=== PATIENT | female | born 1985 | race Caucasian/White ===

== ENCOUNTER 2019-06-05 07:51 | Emergency (ER) | payer OTHER ==
[2019-06-05] MEDS ORDERED: ONDANSETRON ODT 4 MG TABLET TL STA (08:14)
[2019-06-05] MEDS ORDERED: SUMAtriptan 6 MG/0.5 ML VIAL SUBQ STA (08:14)
[2019-06-05] MEDS ORDERED: KETOROLAC 60 MG/2 ML VIAL IM STA (08:14)
--- NOTE | 2019-06-05 08:15 | ED Physician Documentation ---
PD HPI HEADACHE - Stated complaint Stated Complaint: MIGRAINE - Chief complaint Chief Complaint: Neuro - History obtained from History obtained from: Patient - History of Present Illness Timing - onset: How many hours ago (4) Timing - onset during: Rest Timing - duration: Hours (4) Timing - details: Gradual onset Pain level max: 9 Pain level now: 9 Location: Global Quality: Throbbing, Aching Associated symptoms: Nausea. No: Fever, Stiff neck, Vomiting, Weakness, Numbness, Syncope, Seizure, Eye pain, Vision changes Improved by: Rest, Dark room Worsened by: Light, Noise, Moving Contributing factors: No: Anticoagulated, Possible carbon monoxide, Hypertension, Other, Recent illness, Trauma - Additional information Additional information: has had similar headaches in the past. states normally "stays in bed" but had to work today. Review of Systems Constitutional: denies: Fever, Chills Cardiac: denies: Chest pain / pressure Respiratory: denies: Cough GI: denies: Hematemesis : denies: Dysuria, Frequency, Hesitancy, Now EGA Skin: denies: Rash Musculoskeletal: denies: Neck pain, Back pain Neurologic: denies: Focal weakness, Numbness, Syncope, Seizure, Confused, Altered mental status, Head injury, LOC PD PAST MEDICAL HISTORY - Past Medical History Past Medical History: Yes - Present Medications Home Medications: Ambulatory Orders Medication Instructions Recorded Confirmed Bupropion HCl [Wellbutrin Xl] 300 mg PO DAILY 06/05/19 06/05/19 Dextroamphetamine/Amphetamine 40 mg pe PO DAILY 06/05/19 06/05/19 [Adderall 30 mg Tablet] Trazodone HCl 200 mg PO DAILY 06/05/19 06/05/19 - Allergies Allergies/Adverse Reactions: Allergies Allergy/AdvReac Type Severity Reaction Status Date / Time No Known Drug Allergies Allergy Verified 06/05/19 08:05 - Living Situation Living Situation: reports: With family Living Arrangement: reports: At home - Social History Does the pt have substance abuse?: No - Family History Family history: reports: Non contributory PD ED PE NORMAL - Vitals Vital signs reviewed: Yes - General General: Alert and oriented X 3 - HEENT HEENT: PERRL - Neck Neck: Supple, no meningeal sign - Cardiac Cardiac: RRR, Strong equal pulses - Respiratory Respiratory: No respiratory distress, Clear bilaterally - Abdomen Abdomen: Normal bowel sounds, Soft, Non tender, Non distended - Derm Derm: Warm and dry - Extremities Extremities: No deformity - Neuro Neuro: Alert and oriented X 3, circuitry negative inspector 2-12 intact, No motor deficit, No sensory deficit, Normal speech Eye Opening: Spontaneous Motor: Obeys Commands Verbal: Oriented GCS Score: 15 - Psych Psych: Normal mood, Normal affect Results - Vitals Vitals: Vital Signs - 24 hr 06/05/19 06/05/19 06/05/19 08:03 09:09 10:10 Temperature 36.4 C L Heart Rate 86 85 77 Respiratory 18 21 18 Rate Blood Pressure 147/86 H 153/102 H 140/84 H O2 Saturation 100 97 99 Oxygen O2 Source Room air PD MEDICAL DECISION MAKING - ED course Complexity details: re-evaluated patient, considered differential, d/w patient ED course: 34-year-old female with a headache today. Feels better after Toradol, Compazine, Benadryl and Zofran. Headache resolved. Would like to go home at this time. No evidence of meningitis, subarachnoid hemorrhage. Normal neurological exam. Patient counseled regarding signs and symptoms for which I believe and urgent re-evaluation would be necessary. Patient with good understanding of and agreement to plan and is comfortable going home at this time This document was made in part using voice recognition software. While efforts are made to proofread this document, sound alike and grammatical errors may occur. Departure - Departure Disposition: 01 Home, Self Care Clinical Impression: Migraine Qualifiers: Migraine type: unspecified Status migrainosus presence: without status migrainosus Intractability: not intractable Qualified Code(s): G43.909 - Migraine, unspecified, not intractable, without status migrainosus Condition: Good Instructions: ED Headache Migraine Follow-Up: Gela Chan ARNP [Primary Care Provider] - As Needed Comments: Return if you worsen. You are not to drive today. Go home and rest. Follow-up with your doctor for further care. Forms: Activity restrictions Discharge Date/Time: 06/05/19 10:11
[2019-06-05] MEDS ORDERED: PROCHLORPERAZINE 10 MG/2 ML VIAL IM STA (09:06)
[2019-06-05] MEDS ORDERED: diphenhydrAMINE INJ 50 MG/ML VIAL IM STA (09:06)
[2019-06-05 10:11] VITALS: BP 140/84
== END 2019-06-05 10:11 | disposition home or self-care (01) ==
LOC: ED 07:51
DX: G43.909 Migraine, unspecified, not intractable, without status migrainosus (principal)
CPT/HCPCS: 96372; 99283; 99284; J1200; Q0162

== ENCOUNTER 2019-07-06 18:40 | Emergency (ER) | payer OTHER ==
[2019-07-06 19:23] LABS: BASOPHILS # (AUTO) 0.1 10^3/uL (0.0-0.1); BASOPHILS % (AUTO) 0.5 %; EOSINOPHILS # (AUTO) 0.1 10^3/uL (0.0-0.7); EOSINOPHILS % (AUTO) 0.6 %; HGB - HEMOGLOBIN 13.3 g/dL (12.0-16.0); LYMPHOCYTES # (AUTO) 2.5 10^3/uL (1.5-3.5); MEAN CORPUSCULAR HEMOGLOBIN 26.8 pg (27.0-31.0); MEAN CORPUSCULAR HGB CONC 31.7 g/dL (32.0-36.0); MEAN CORPUSCULAR VOLUME 84.7 fL (81.0-99.0); MONOCYTES # (AUTO) 0.9 10^3/uL (0.0-1.0); MONOCYTES % (AUTO) 6.1 %; NEUTROPHILS % (AUTO) 75.1 %; PLT - PLATELET COUNT 388 10^3/uL (130-450); RED BLOOD COUNT 4.96 10^6/uL (4.20-5.40); RED CELL DISTRIBUTION WIDTH 13.2 % (12.0-15.0); WHITE BLOOD COUNT 14.6 x10^3/uL (4.8-10.8)
[2019-07-06 19:31] LABS: ALBUMIN 4.3 g/dL (3.2-5.5); ALBUMIN/GLOBULIN RATIO 1.1 (1.0-2.2); BILIRUBIN,TOTAL 0.5 mg/dL (0.2-1.0); CALCIUM 9.3 mg/dL (8.5-10.3); CREATININE 0.9 mg/dL (0.4-1.0); TOTAL PROTEIN 8.1 g/dL (6.7-8.2)
--- NOTE | 2019-07-06 19:48 | XRAY Report ---
Reason: chest pain Procedure Date: 07/06/2019 Accession Number: [id number] / [id number] Procedure: XR - Chest 1 View X-Ray CPT Code: 89145 FULL RESULT: EXAM: CHEST RADIOGRAPHY EXAM DATE: 07/06/2019 07:01 PM. CLINICAL HISTORY: Chest pain. COMPARISON: None. TECHNIQUE: 1 view. FINDINGS: Lungs/Pleura: No focal opacities evident. No pleural effusion. No pneumothorax. Mediastinum: Within exam limitations, the cardiomediastinal contour is normal. Other: None. IMPRESSION: Normal single view chest. RADIA
--- NOTE | 2019-07-06 19:50 | ED Physician Documentation ---
PD HPI CHEST PAIN - Stated complaint Stated Complaint: CP - Chief complaint Chief Complaint: Cardiac - History obtained from History obtained from: Patient - History of Present Illness Timing - onset: Today Timing - onset during: Rest Timing - duration: Hours (7) Timing - details: Gradual onset Pain level max: 10 Quality: Other (Heartburn) Location: Substernal Improved by: Nothing Associated symptoms: Nausea, Cough. No: Shortness of air, Vomiting, Feeling faint / dizzy Similar symptoms before: Other (Gets frequent almost daily heartburn.) Recently seen: Not recently seen - Additional information Additional information: This is a 34-year-old woman who started experiencing some heartburn around 2:00 this afternoon and then it just became intensely sharp and she could not even swallow her own saliva she was having to spit it out. She tried taking some ranitidine that did nothing to help alleviate the pain so she called the nurse hotline around 4 PM and was instructed to come in for evaluation. Patient had worked out from about 2 PM to 3 PM despite the heartburn. She is never experienced dysphagia before but does have frequent heartburn on an almost daily basis just use the ranitidine as needed. Yesterday she says she had a lot of hiccups. She also has had some nausea but no vomiting. She denies shortness of breath although she has some pleuritic nature to the pain. No numbness or tingling. No coughing or sore throat. She denies stating her last menstrual period was June 19 and she denies dysuria. She is status post appendectomy and C-sections. Review of Systems Constitutional: denies: Fever Nose: denies: Congestion Throat: denies: Sore throat Cardiac: reports: Chest pain / pressure, Palpitations (While exercising) Respiratory: denies: Dyspnea, Cough GI: reports: Nausea. denies: Abdominal Pain, Vomiting, Diarrhea : reports: LMP (Jun 19). denies: Dysuria, Now EGA Skin: denies: Rash PD PAST MEDICAL HISTORY - Past Medical History Psych: Depression, Anxiety, ADD/ADHD - Present Medications Home Medications: Ambulatory Orders Medication Instructions Recorded Confirmed Bupropion HCl [Wellbutrin Xl] 300 mg PO DAILY 06/05/19 06/05/19 Dextroamphetamine/Amphetamine 40 mg pe PO DAILY 09/06/19 09/06/19 [Adderall 30 mg Tablet] Trazodone HCl 200 mg PO DAILY 06/05/19 06/05/19 Famotidine [Pepcid] 20 mg PO BID #60 tablet 07/06/19 raNITIdine HCl [Zantac] 150 mg PO BID #60 tablet 07/06/19 - Allergies Allergies/Adverse Reactions: Allergies Allergy/AdvReac Type Severity Reaction Status Date / Time No Known Drug Allergies Allergy Verified 07/06/19 18:49 - Social History Does the pt smoke?: No Smoking Status: Never smoker Does the pt have substance abuse?: No PD ED PE NORMAL - Vitals Vital signs reviewed: Yes - General General: Alert and oriented X 3, No acute distress, Well developed/nourished - HEENT HEENT: Atraumatic, PERRL, EOMI, Moist mucous membranes - Neck Neck: No adenopathy, Thyroid normal - Cardiac Cardiac: RRR, No murmur, Strong equal pulses - Respiratory Respiratory: No respiratory distress, Clear bilaterally - Abdomen Abdomen: Normal bowel sounds, Soft, No organomegaly, Other (Minimal discomfort in the epigastric area without guarding or rebound) - Derm Derm: Normal color, Warm and dry, No rash - Extremities Extremities: No edema - Neuro Neuro: Alert and oriented X 3, transport medic 2-12 intact, Normal speech, Other (No gross neurological deficits) - Psych Psych: Normal mood, Normal affect Results - Vitals Vitals: Vital Signs - 24 hr 07/06/19 21:51 Heart Rate 82 Respiratory 16 Rate Blood Pressure 120/87 H O2 Saturation 94 Oxygen O2 Source Room air - EKG (time done) 1852 Rate: Rate (enter#) (96) Rhythm: NSR Intervals: Normal [place], Other ([place] QRS) Ischemia: T wave inversion (III) - Labs Labs: Laboratory Tests 07/06/19 07/06/19 19:05 19:05 WBC 14.6 H RBC 4.96 Hgb 13.3 Hct 42.0 MCV 84.7 MCH 26.8 L MCHC 31.7 L RDW 13.2 Plt Count 388 MPV 9.0 Neut # (Auto) 11.0 H Lymph # (Auto) 2.5 [place] # (Auto) 0.9 Eos # (Auto) 0.1 Baso # (Auto) 0.1 Absolute Nucleated RBC 0.00 Nucleated RBC % 0.0 Sodium 137 Potassium 3.7 Chloride 100 L Carbon Dioxide 26 Anion Gap 11.0 BUN 12 Creatinine 0.9 Estimated GFR (MDRD) 71 L Glucose 92 Calcium 9.3 Total Bilirubin 0.5 AST 23 ALT 33 Alkaline Phosphatase 83 Total Protein 8.1 Albumin 4.3 Globulin 3.8 Albumin/Globulin Ratio 1.1 Lipase 28 - Rads (name of study) CXR Radiology: EMP read contemporaneously, See rad report (Neg) PD MEDICAL DECISION MAKING - ED course Complexity details: reviewed results, d/w patient ED course: White blood cell count is minimally elevated at 14. Her CMP is normal and lipase is negative. Chest x-ray is clear and EKG does not show any ischemic changes. Patient has daily heartburn and had an episode of dysphagia today where she could not even swallow her saliva but denies dysphagia on a regular basis. She will be medicated with a GI cocktail here in the emergency department and I recommended daily Zantac for the next 2 weeks. She should avoid anti-inflammatories because she takes ibuprofen on a near daily basis. Follow-up with your primary care provider if the heartburn persists despite the Zantac and avoid spicy fried or fatty foods. There is no indication that this is her gallbladder. Late entry: Zantac was changed to Pepcid due to recent safety concerns surrounding the drug. Departure - Departure Disposition: 01 Home, Self Care Clinical Impression: Reflux esophagitis Condition: Good Instructions: ED Chest Pain NonCardiac, ED GERD Follow-Up: [facility] [Provider Group] Prescriptions: Famotidine [Pepcid] 20 mg PO BID #60 tablet raNITIdine HCl [Zantac] 150 mg PO BID #60 tablet Comments: Avoid anti-inflammatory medications like ibuprofen or Aleve [id number]. Avoid spicy, fried or fatty foods. Take the Zantac twice a day for 2 weeks. If you continue to experience heartburn follow-up with your primary care provider for further management. Return to the emergency department if you have any difficulty swallowing or feel that you have food stuck that is not passing through. Discharge Date/Time: 07/06/19 22:06
[2019-07-06] MEDS ORDERED: LIDOCAINE VISCOUS 2% 15 ML UDC MM STA (21:42)
[2019-07-06] MEDS ORDERED: MAG HYDROX/AL HYDROX/SIMETH 30 ML UDC PO STA (21:43)
[2019-07-06 21:52] VITALS: BP 120/87
== END 2019-07-06 22:06 | disposition home or self-care (01) ==
LOC: ED 18:40
DX: K21.0 Gastro-esophageal reflux disease with esophagitis (principal)
CPT/HCPCS: 36415; 71045; 80053; 83690; 85025; 93005; 99284; A9270

== ENCOUNTER 2019-07-22 15:37 | Emergency (ER) | payer OTHER ==
[2019-07-22 15:46] VITALS: BP 132/74
--- NOTE | 2019-07-22 16:44 | ED Physician Documentation ---
PD HPI FEMALE - Stated complaint Stated Complaint: FEMALE - Chief complaint Chief Complaint: Abd Pain - History obtained from History obtained from: Patient - History of Present Illness Pain level max: 0 Pain level max: 0 Associated symptoms: No: Fever, Chest/shoulder pain, Abdominal pain, Back pain, Vaginal bleeding Contributing factors: No: Recently seen: Not recently seen - Additional information Additional information: 34-year-old female presents to the emergency department complaining of vaginal itching and thick white discharge. Started a few days ago. Concerned she has a yeast infection. Nothing makes it better or worse. No change in sexual partners. No STD exposure. Review of Systems Constitutional: denies: Fever, Chills GI: denies: Nausea, Vomiting : denies: Now EGA Skin: denies: Rash Musculoskeletal: denies: Neck pain, Back pain Neurologic: denies: Headache PD PAST MEDICAL HISTORY - Past Medical History Cardiovascular: None Respiratory: None Neuro: None Endocrine/Autoimmune: None GI: GERD DEPARTMENT MANAGER: None : None HEENT: None Psych: Depression, Anxiety, ADD/ADHD Musculoskeletal: None Derm: None - Past Surgical History Past Surgical History: Yes General: Appendectomy /DEPARTMENT MANAGER: section - Present Medications Home Medications: Ambulatory Orders Medication Instructions Recorded Confirmed Bupropion HCl [Wellbutrin Xl] 300 mg PO DAILY 06/05/19 06/05/19 Dextroamphetamine/Amphetamine 40 mg pe PO DAILY 06/05/19 06/05/19 [Adderall 30 mg Tablet] Trazodone HCl 200 mg PO DAILY 06/05/19 06/05/19 Famotidine [Pepcid] 20 mg PO BID #60 tablet 07/06/19 raNITIdine HCl [Zantac] 150 mg PO BID #60 tablet 07/06/19 - Allergies Allergies/Adverse Reactions: Allergies Allergy/AdvReac Type Severity Reaction Status Date / Time No Known Drug Allergies Allergy Verified 07/22/19 15:41 - Social History Does the pt smoke?: No Smoking Status: Never smoker Does the pt drink ETOH?: No Does the pt have substance abuse?: No - Immunizations Immunizations are current?: Yes - POLST Patient has POLST: No PD ED PE NORMAL - Vitals Vital signs reviewed: Yes - General General: Alert and oriented X 3, No acute distress - HEENT HEENT: Moist mucous membranes - Neck Neck: Supple, no meningeal sign - Respiratory Respiratory: No respiratory distress - Derm Derm: Warm and dry - Neuro Neuro: Alert and oriented X 3 Results - Vitals Vitals: Vital Signs - 24 hr 07/22/19 15:41 Temperature 36.8 C Heart Rate 84 Respiratory 16 Rate Blood Pressure 132/74 H O2 Saturation 96 Oxygen O2 Source Room air - Labs Labs: Laboratory Tests 07/22/19 07/22/19 16:06 16:06 C. glabrata (PCR) NEGATIVE C. krusei (PCR) NEGATIVE Shanae species DNA NEGATIVE Chlam trachomat DNA PCR NEGATIVE N.gonorrhoeae DNA (PCR) NEGATIVE T. vaginalis (PCR) NEGATIVE NEGATIVE Bact Vaginosis (PCR) NEGATIVE PD MEDICAL DECISION MAKING - ED course Complexity details: reviewed results, re-evaluated patient, considered differential, d/w patient ED course: Symptoms consistent with a yeast infection. Declines pelvic exam. Vaginal swab sent. Given a dose of Diflucan here. She will follow-up with her doctor for further care. Patient counseled regarding signs and symptoms for which I believe and urgent re-evaluation would be necessary. Patient with good understanding of and agreement to plan and is comfortable going home at this time This document was made in part using voice recognition software. While efforts are made to proofread this document, sound alike and grammatical errors may occur. Departure - Departure Disposition: 01 Home, Self Care Clinical Impression: Vaginal yeast infection Condition: Good Instructions: ED Vaginal Infec Fungal Shanae Follow-Up: Gela Chan, [employer] [Primary Care Provider] - As Needed Comments: We have treated you for a yeast infection today. If your swabs come back with any different findings, we will send a prescription to the pharmacy for you and call you. Discharge Date/Time: 07/22/19 17:16
[2019-07-22] MEDS ORDERED: FLUCONAZOLE 100 MG TABLET PO STA (17:02)
[2019-07-22 18:13] LABS: CANDIDA GROUP DNA NEGATIVE (NEGATIVE); CANDIDA KRUSEI DNA NEGATIVE (NEGATIVE); TRICHOMONAS VAGINALIS DNA NEGATIVE (NEGATIVE)
[2019-07-22 22:04] LABS: TRICHOMONAS VAGINALIS DNA NEGATIVE (NEGATIVE)
== END 2019-07-22 17:16 | disposition home or self-care (01) ==
LOC: ED 15:37
DX: B37.3 Candidiasis of vulva and vagina (principal)
CPT/HCPCS: 87481; 87491; 87591; 87661; 87801; 99283; 99284; A9270

== ENCOUNTER 2021-01-19 22:50 | Emergency (ER) | payer OTHER ==
--- NOTE | 2021-01-19 22:51 | ED Physician Documentation ---
PD HPI ABD PAIN - Stated complaint Stated Complaint: LOWER ABD PX - History obtained from History obtained from: Patient, EMS - History of Present Illness Timing - onset: Enter time (21:00), Today Timing - details: Gradual onset, Waxing and waning Pain level max: 10 Pain level now: 8 Quality: Pain Location: Other (across lower abdomen) Radiation: Other (does not radiate) Improved by: Laying still Worsened by: Palpation Associated symptoms: No: Fever, Nausea, Vomiting, Hematemesis, Diarrhea, Constipation, Melena, Hematochezia, Dysuria Similar symptoms before: Has not had sx before Recently seen: Not recently seen - Additional information Additional information: BIBA for lower abdominal pain. The pain began at approximately 9 PM tonight while at home at rest (was sitting and talking to spouse on the phone), gradual onset but increasingly frequent and severe waxing and waning course. She denies having similar pain in the past. Review of Systems Constitutional: reports: Reviewed and negative Cardiac: reports: Reviewed and negative Respiratory: reports: Reviewed and negative GI: reports: Abdominal Pain. denies: Nausea, Vomiting, Constipation, Diarrhea, Hematemesis, Bloody / black stool : denies: Dysuria, Frequency, Now EGA Skin: reports: Reviewed and negative Musculoskeletal: reports: Reviewed and negative PD PAST MEDICAL HISTORY - Past Medical History Cardiovascular: None Respiratory: None Neuro: None Endocrine/Autoimmune: None GI: GERD MAJOR APPLIANCE ASSEMBLY SUPERVISOR: None : None HEENT: None Psych: Depression, Anxiety, ADD/ADHD Musculoskeletal: None Derm: None - Past Surgical History Past Surgical History: Yes General: Appendectomy /MAJOR APPLIANCE ASSEMBLY SUPERVISOR: section - Present Medications Home Medications: Ambulatory Orders Medication Instructions Recorded Confirmed Bupropion HCl [Wellbutrin Xl] 300 mg PO DAILY 06/05/19 06/05/19 Dextroamphetamine/Amphetamine 40 mg pe PO DAILY 06/05/19 06/05/19 [Adderall 30 mg Tablet] Trazodone HCl 200 mg PO DAILY 06/05/19 06/05/19 Famotidine [Pepcid] 20 mg PO BID #60 tablet 07/06/19 raNITIdine HCL [Zantac] 150 mg PO BID #60 tablet 07/06/19 Oxycodone HCl/Acetaminophen 1 - 2 each PO Q6H PRN #14 tablet 01/20/21 [Percocet 5-325 mg Tablet] - Allergies Allergies/Adverse Reactions: Allergies Allergy/AdvReac Type Severity Reaction Status Date / Time No Known Drug Allergies Allergy Verified 01/19/21 22:55 - Social History Does the pt smoke?: No Smoking Status: Never smoker Does the pt drink ETOH?: No Does the pt have substance abuse?: No - Immunizations Immunizations are current?: Yes - POLST Patient has POLST: No PD ED PE NORMAL - Vitals Vital signs reviewed: Yes - General General: Alert and oriented X 3, Well developed/nourished, Other (obvious painful distress that waxes and wanes during H+P) - HEENT HEENT: Moist mucous membranes - Cardiac Cardiac: No murmur - Respiratory Respiratory: No respiratory distress, Clear bilaterally - Abdomen Abdomen: Soft, Non distended, Other (TTP across lower abdomen and periumbilicus) - Back Back: No CVA TTP - Derm Derm: Normal color, Warm and dry PD ED PE EXPANDED - Cardiac Cardiac: Tachy, Regular Rhythm Results - Vitals Vitals: Vital Signs - 24 hr 01/19/21 01/19/21 01/20/21 22:55 23:02 01:02 Temperature 36.5 C 36.5 C 36.5 C Heart Rate 112 H 112 H 100 Respiratory 20 20 18 Rate Blood Pressure 150/98 H 150/98 H 140/90 H O2 Saturation 98 98 100 01/20/21 01/20/21 03:05 04:46 Temperature 36.5 C Heart Rate 93 88 Respiratory 19 16 Rate Blood Pressure 130/86 H 128/82 H O2 Saturation 98 100 Oxygen O2 Source Room air - Labs Labs: Laboratory Tests 01/19/21 01/19/21 01/19/21 23:00 23:00 23:08 WBC 17.4 H RBC 5.18 Hgb 12.6 Hct 41.2 MCV 79.5 L MCH 24.3 L MCHC 30.6 L RDW 14.9 Plt Count 473 H MPV 9.0 Neut # (Auto) 14.6 H Lymph # (Auto) 1.6 [place] # (Auto) 0.9 Eos # (Auto) 0.1 Baso # (Auto) 0.1 Absolute Nucleated RBC 0.00 Nucleated RBC % 0.0 Sodium Potassium Chloride Carbon Dioxide Anion Gap BUN Creatinine Estimated GFR (MDRD) Glucose Calcium Total Bilirubin AST ALT Alkaline Phosphatase Total Protein Albumin Globulin Albumin/Globulin Ratio Lipase Urine Color YELLOW Urine Clarity CLEAR Urine pH 6.0 Ur Specific [place] 1.025 Urine Protein NEGATIVE Urine Glucose (UA) NEGATIVE Urine Ketones NEGATIVE Urine Occult Blood NEGATIVE Urine Nitrite NEGATIVE Urine Bilirubin NEGATIVE Urine Urobilinogen 0.2 (NORMAL) Ur Leukocyte Esterase NEGATIVE Ur Microscopic Review NOT INDICATED Urine Culture Comments NOT INDICATED Urine HCG, Qual NEGATIVE 01/19/21 23:08 WBC RBC Hgb Hct MCV MCH MCHC RDW Plt Count MPV Neut # (Auto) Lymph # (Auto) [place] # (Auto) Eos # (Auto) Baso # (Auto) Absolute Nucleated RBC Nucleated RBC % Sodium 137 Potassium 3.8 Chloride 104 Carbon Dioxide 22 Anion Gap 11.0 BUN 13 Creatinine 0.8 Estimated GFR (MDRD) 81 L Glucose 158 H Calcium 9.1 Total Bilirubin 0.3 AST 23 ALT 40 Alkaline Phosphatase 95 Total Protein 8.1 Albumin 4.1 Globulin 4.0 Albumin/Globulin Ratio 1.0 Lipase 33 Urine Color Urine Clarity Urine pH Ur Specific [place] Urine Protein Urine Glucose (UA) Urine Ketones Urine Occult Blood Urine Nitrite Urine Bilirubin Urine Urobilinogen Ur Leukocyte Esterase Ur Microscopic Review Urine Culture Comments Urine HCG, Qual - Rads (name of study) CT A/P with IV contrast Radiology: Prelim report reviewed, See rad report pelvic TV US w/doppler Radiology: Prelim report reviewed, See rad report PD MEDICAL DECISION MAKING - ED course Complexity details: reviewed results, re-evaluated patient, considered differential, d/w patient ED course: Patient's pain was controlled with IV dilaudid (transient improvement with first dose of 1mg IV dilaudid but she had good pain control for remainder of stay after a second dose was given). CT A/P demonstrates cholelithiasis but her pain is limited to lower abdomen and pelvis and thus this finding is likely coincident. There is also a left adnexal lesion noted and thus US then ordered. US does not evidence torsion but interpreted by radiologist as "complex left paraovarian cyst versus dilated fallopian tube (internal echoes raises possibilities of pyosalpinx or hematosalpinx)" Case d/w Dr. Dupree (regional director of finance satellite dish repairer) who then came to ED and evaluated patient; please refer to her note for details. After this consult, plan is to discharge home with instruction to follow up with satellite dish repairer but return if worse in any way (such as worsening pain, or new concerning signs/symptoms such as fe bob). The patient is comfortable with this plan (she is requesting discharge home and says she will contact [facility] medical in the morning). She is AAOx3 and in NAD prior to discharge Departure - Departure Disposition: Home, Self Care Clinical Impression: Pelvic pain Condition: Good Instructions: ED Pelvic Pain [facility]O Follow-Up: [facility] [Provider Group] Prescriptions: Oxycodone HCl/Acetaminophen [Percocet 5-325 mg Tablet] 1 - 2 each PO Q6H PRN #14 tablet PRN Reason: pain Comments: Contact your satellite dish repairer this morning to arrange for next available appointment. Discharge Date/Time: 01/20/21 04:46
[2021-01-19] MEDS ORDERED: SODIUM CHLORIDE 0.9% 1,000 ML IV STA (22:59)
[2021-01-19] MEDS ORDERED: HYDROmorphone 1 MG/ML CARPUJECT IVP STA (22:59)
[2021-01-19 23:09] LABS: BILIRUBIN,URINE NEGATIVE (NEGATIVE); GLUCOSE, URINE (UA) NEGATIVE (NEGATIVE); KETONES,URINE (UA) NEGATIVE (NEGATIVE); LEUKOCYTE ESTERASE, URINE NEGATIVE (NEGATIVE); NITRITE,URINE NEGATIVE (NEGATIVE); OCCULT BLOOD,URINE NEGATIVE (NEGATIVE); PROTEIN,URINE NEGATIVE (NEGATIVE); UROBILINOGEN,URINE 0.2 (NORMAL) E.U./dL (NORMAL)
[2021-01-19 23:10] LABS: CLARITY,URINE CLEAR (CLEAR)
[2021-01-19 23:11] LABS: HCG UR QUAL NEGATIVE
[2021-01-19 23:13] LABS: BASOPHILS # (AUTO) 0.1 10^3/uL (0.0-0.1); BASOPHILS % (AUTO) 0.5 %; EOSINOPHILS # (AUTO) 0.1 10^3/uL (0.0-0.7); EOSINOPHILS % (AUTO) 0.7 %; HCT - HEMATOCRIT 41.2 % (37.0-47.0); HGB - HEMOGLOBIN 12.6 g/dL (12.0-16.0); LYMPHOCYTES # (AUTO) 1.6 10^3/uL (1.5-3.5); LYMPHOCYTES % (AUTO) 9.4 %; MEAN CORPUSCULAR HEMOGLOBIN 24.3 pg (27.0-31.0); MEAN CORPUSCULAR HGB CONC 30.6 g/dL (32.0-36.0); MEAN CORPUSCULAR VOLUME 79.5 fL (81.0-99.0); MONOCYTES # (AUTO) 0.9 10^3/uL (0.0-1.0); MONOCYTES % (AUTO) 5.2 %; NEUTROPHILS # (AUTO) 14.6 10^3/uL (1.5-6.6); NEUTROPHILS % (AUTO) 83.7 %; PLT - PLATELET COUNT 473 10^3/uL (130-450); RED BLOOD COUNT 5.18 10^6/uL (4.20-5.40); RED CELL DISTRIBUTION WIDTH 14.9 % (12.0-15.0); WHITE BLOOD COUNT 17.4 x10^3/uL (4.8-10.8)
--- OUTSIDE RECORDS SUMMARY | 2021-01-19 23:20 | EXTERNAL MEDICAL SUMMARY RPT | Continuity of Care Document ---
:1985 Demographics Phone Unavailable Preferred Language Unknown Marital Status Unknown Hoahaoism Affiliation Unknown Race Unknown Ethnic Group Unknown Author Organization [facility] Address [address] [place] [address] Phone Social History date description facility [id number]
[2021-01-19 23:26] LABS: ALBUMIN 4.1 g/dL (3.2-5.5); BILIRUBIN,TOTAL 0.3 mg/dL (0.2-1.0); CALCIUM 9.1 mg/dL (8.5-10.3); CREATININE 0.8 mg/dL (0.4-1.0); POTASSIUM 3.8 mmol/L (3.5-5.0); TOTAL PROTEIN 8.1 g/dL (6.7-8.2)
[2021-01-19] MEDS ORDERED: IOPAMIDOL-300 100 ML VIAL ONE (23:29)
[2021-01-20] MEDS ORDERED: IOPAMIDOL-300 100 ML VIAL IVP ONE (00:03)
[2021-01-20] MEDS ORDERED: HYDROmorphone 1 MG/ML CARPUJECT IVP STA (00:29)
[2021-01-20] MEDS ORDERED: KETOROLAC 30 MG/ML VIAL IVP STA (00:30)
[2021-01-20] MEDS ORDERED: oxyCODONE/ACET 5/325 Prepack 4 PO STA (04:35)
--- NOTE | 2021-01-20 04:46 | CONSULTATION NOTE ---
Referring Provider Name of Referring Provider:: Dr. Ortiz Consult Date: 01/20/21 Chief Complaint - Chief Complaint Chief Complaint: Acute pelvic pain History of Present Illness - History of Present Illness HPI Comment/Other: ID: Patient is a 35 yo here with acute onset pelvic pain. Patient reports that she was talking to her on the phone about 9 pm when she started having left sided pelvic pain that spread across her lower abdomen. Her abdomen felt rigid at the time. Pain was rated 10/10. She has never had pain like this in the past. No vomiting. No fever. Low risk profile for PID. No vaginal discharge or bleeding. She has had 2 prior CS and a BTL> Last IC was in November as was her last menstrual cycle. Negative UCG on presentation. Irregualr menses with no clear pattern to cycles. Had presumed she was premenopausal as her mother had early onset menopause/premature ovarian failure prior to age 40. Elevated WBC at 17.4. Review of prior records shows WBC 14.6 in June when presenting for [facility]. CT scan showed hepatic steatosis and cholelithiasis, diverticulosis, fibroid uterus, and left adnexal mass 4.6x4.1 cm. Pelvic us showed left ovary with multiple small cysts and an elongated cystic structure, complex with internal echoes suggestive of pyosalpinx or hemosalpinx. (Of note, there were no inflammatory changes noted on CT scan). Patient notes that she almost fell asleep during the pelvic us. PMH: unremarkable PSH: x2 BTL with CS Appendectomy SOC HX: Lives in [place] with and 2 children. 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 History - Past Medical History Cardiovascular: reports: None Respiratory: reports: None Neuro: reports: None Endocrine/Autoimmune: reports: None GI: reports: GERD FLORAL DEPARTMENT SPECIALIST: reports: None : reports: None HEENT: reports: None Psych: reports: Depression, Anxiety, ADD/ADHD Musculoskeletal: reports: None Derm: reports: None MRSA Hx?: No - Past Surgical History General: reports: Appendectomy /[employer]ORAL DEPARTMENT SPECIALIST: reports: section - POLST Patient has POLST: No Meds/Allgy - Home Medications Home Medications: Ambulatory Orders Medication Instructions Recorded Confirmed Bupropion HCl [Wellbutrin Xl] 300 mg PO DAILY 06/05/19 06/05/19 Dextroamphetamine/Amphetamine 40 mg pe PO DAILY 06/05/19 06/05/19 [Adderall 30 mg Tablet] Trazodone HCl 200 mg PO DAILY 06/05/19 06/05/19 Famotidine [Pepcid] 20 mg PO BID #60 tablet 07/06/19 raNITIdine HCL [Zantac] 150 mg PO BID #60 tablet 07/06/19 Oxycodone HCl/Acetaminophen 1 - 2 each PO Q6H PRN #14 tablet 01/20/21 [Percocet 5-325 mg Tablet] - Allergies Allergies/Adverse Reactions: Allergies Allergy/AdvReac Type Severity Reaction Status Date / Time No Known Drug Allergies Allergy Verified 01/19/21 22:55 Exam - Vital Signs Reviewed Vital Signs: Yes Vital Signs: Vital Signs x48h Temp Pulse Resp BP Pulse Ox 01/20/21 03:05 93 19 130/86 H 98 01/20/21 01:02 97.7 F 100 18 140/90 H 100 01/19/21 23:02 97.7 F 112 H 20 150/98 H 98 01/19/21 22:55 97.7 F 112 H 20 150/98 H 98 - Physical Exam General Appearance: positive: Mild distress, Other (Sitting upright in bed, mild discomfort) Respiratory: positive: No respiratory distress Cardiovascular: positive: Other (RR) Abdomen: positive: Other (Soft and non-distended. Non-tender on superficial exam. Moderate TTP with deep palpation of RLQ and milder reaction to LLW. No guarding and no rebound.) Skin: positive: Color nml, Warm, Dry Extremities: positive: Non-tender, Nml appearance Neurologic/Psychiatric: positive: Oriented x3 Conclusion/Plan - Diagnosis Diagnosis: Adnexal mass; unclear etiology - Plan Plan: Acute onset pelvic pain: Pelvic us suggests possible tubal abnormality. Review of images does not rule out ovarian cyst. Pelvic us did not support ovarian torsion. Pain rated 3/10 at time of assessment with non-toxic appearance of patient. Unclear etiology to pain but most likely related to adnexal structure. Offered following options: - Immediate surgical exploration. Given stable VS and current pain control, would be preferable to schedule during regular OR hours but initial presentation would warrant surgical intervention. Current presentation less concerning for emergent surgical procedure. -Offered observation for pain management -Discharge with pain medication with fu in clinic. Patient feels comfortable with discharge with pain medication. beneficiary; will need referral from [facility] to fu in clinic. Will likely benefit from surgical intervention at later date. Reviewed warning signs to return to ER. Reviewed that oligomenorrhea needs to be address with progesterone supplementation to prevent hyperplasia/malignancy and should be addressed with her PCP/primary OBGYN. Discussed with Dr. Ortiz who will coordinate discharge I personally reviewed CT and us images as well as report. A total of 45 minutes was spent reviewing history, images, examination of patient. - Lab Results Fish Bones: 01/19/21 23:08 01/19/21 23:08
[2021-01-20 04:47] VITALS: BP 128/82
--- NOTE | 2021-01-20 08:46 | CT Report ---
PROCEDURE: Abdomen/Pelvis W INDICATIONS: abdominal pain CONTRAST: IV CONTRAST: Isovue 300 ml: 100 PO CONTRAST: *NO PO CONTRAST TECHNIQUE: After the administration of intravenous contrast, 5 mm thick sections acquired from the diaphragms to the symphysis. 5 mm thick coronal and sagittal reformats were acquired. For radiation dose reducti on, the following was used: automated exposure control, adjustment of mA and/or kV according to fito ent size. COMPARISON: None. FINDINGS: Image quality: Excellent. ABDOMEN: Lung bases: Lung bases are clear. Heart size is normal. Solid organs: Diffuse hepatic steatosis. Small approximately [address] findings of cholec ystitis. No intrahepatic or extrahepatic biliary ductal dilatation. Pancreas unremarkable. Normal siz e of the spleen. No adrenal gland nodule mass. Both kidneys normal in size and appearance with no fin dings of hydronephrosis. Peritoneum and bowel: No abnormally dilated or obviously thickened loop of bowel. Status post appende ctomy. No free air or free fluid. Nodes and vessels: No retroperitoneal or mesenteric adenopathy by size criteria. Aorta and inferior vena cava are normal in size. Miscellaneous: No ventral hernias. PELVIS: Genitourinary: Bladder wall thickness is normal. Intermediate density left ovarian mass measuring ap proximately 4.6 x 4.1 cm. Right ovary is unremarkable. Pedunculated uterine fibroid anteriorly. Uteru s otherwise within normal limits. Miscellaneous: No inguinal hernias or adenopathy. Bones: No suspicious bony lesions. No vertebral body compression fractures. IMPRESSION: No acute finding. Indeterminate left adnexal mass measuring up to 4.6 cm. Recommend pelvic ultrasound for further evalu ation. . Hepatic steatosis and cholelithiasis. Reviewed by: Dave Rosario MD on 01/20/2021 8:44 AM PDT Approved by: Dave Rosario MD on 01/20/2021 8:44 AM PDT Station ID: [id number]
--- NOTE | 2021-01-20 08:53 | Ultrasound Report ---
PROCEDURE: Pelvic w/Transvag+Doppler Comp INDICATIONS: Pelvic pain, indeterminate left adnexal mass on CT TECHNIQUE: Real-time scanning was performed of the pelvic organs, with image documentation. Additional endovagi nal scanning was necessary due to incomplete visualization of the adnexal and endometrial structures by transabdominal scanning. COMPARISON: CT abdomen and pelvis 01/19/2021 FINDINGS: The left ovary measures approximately 2.6 x 0.8 x 5.1 cm. There are multiple simple cysts and follicl es in the left ovary. At the peripheral aspect there is a complex elongated cyst with low-level inter nal echoes, measuring up to 8 cm in length. Normal ovarian arterial and venous Doppler signal demonst rated. Right ovary is unremarkable with normal arterial and venous Doppler signal. The uterus measures 4.0 x 4.4 x 9.0 cm. No uterine mass or other uterine abnormality identified. Norm al appearance of the endometrium with a 15 mm double layer thickness. IMPRESSION: Complex cystic tubular elongated structure in the left adnexa, separate from the left ovary. This may represent a complex paraovarian cyst, although a more worrisome fallopian tubal pathology such as py osalpinx, hydrosalpinx, or hematosalpinx what appears similar. Ultrasound follow-up is recommended at a minimum. Gynecologic consultation is also recommended, if not already performed. Reviewed by: Dave Rosario MD on 01/20/2021 8:51 AM PDT Approved by: Dave Rosario MD on 01/20/2021 8:51 AM PDT Station ID: [id number]
== END 2021-01-20 04:46 | disposition home or self-care (01) ==
LOC: EDUNIT# → ED 22:50
DX: N83.202 Unspecified ovarian cyst, left side (principal); R19.04 Left lower quadrant abdominal swelling, mass and lump; K80.51 Calculus of bile duct without cholangitis or cholecystitis with obstruction
CPT/HCPCS: 36415; 74177; 76830; 76856; 80053; 81003; 81025; 83690; 85025; 93975; 96374; 96375; 96376; 99284; J1170; Q9967; 81001; 87086

== ENCOUNTER 2021-02-02 08:00 | Outpatient (CLI) | payer OTHER ==
[2021-02-02 22:31] LABS: CHLAMYDIA TRACHOMATIS DNA NEGATIVE (NEGATIVE); NEISSERIA GONORRHOEAE DNA NEGATIVE (NEGATIVE); TRICHOMONAS VAGINALIS DNA NEGATIVE (NEGATIVE)
== END 2021-02-02 23:59 | disposition home or self-care (01) ==
LOC: LAB.WC 08:00
PROVIDERS: ATTEND Obstetrics & Gynecology
DX: R10.2 Pelvic and perineal pain (principal); R19.09 Other intra-abdominal and pelvic swelling, mass and lump
CPT/HCPCS: 87491; 87591; 87661

== ENCOUNTER 2021-02-02 10:56 | Outpatient (CLI) | payer OTHER ==
[2021-02-02 11:31] LABS: HCT - HEMATOCRIT 37.5 % (37.0-47.0); HGB - HEMOGLOBIN 11.6 g/dL (12.0-16.0); MEAN CORPUSCULAR HEMOGLOBIN 24.4 pg (27.0-31.0); MEAN CORPUSCULAR HGB CONC 30.9 g/dL (32.0-36.0); MEAN CORPUSCULAR VOLUME 78.9 fL (81.0-99.0); RED BLOOD COUNT 4.75 10^6/uL (4.20-5.40); RED CELL DISTRIBUTION WIDTH 15.2 % (12.0-15.0); WHITE BLOOD COUNT 13.7 x10^3/uL (4.8-10.8)
[2021-02-02 11:43] LABS: GTT GLUCOSE,FASTING 104 mg/dL (70-100)
[2021-02-02 11:52] LABS: CHOL/HDL RATIO 4.1 (<4.4); CHOLESTEROL 185 mg/dL; HDL CHOLESTEROL 45 mg/dL; LDL CHOLESTEROL,CALCULATED 113 mg/dL; LDL/HDL RATIO 2.5 (<4.4); TRIGLYCERIDES 134 mg/dL; VLDL CHOLESTEROL 27 mg/dL
[2021-02-02 12:01] LABS: CA 125 12.9 U/mL (0.0-35.0)
[2021-02-02 12:04] LABS: THYROID STIMULATING HORMONE 3.3 uIU/mL (0.34-5.60)
[2021-02-02 12:07] LABS: FREE T4 (FREE THYROXINE) 0.68 ng/dL (0.58-1.64)
[2021-02-02 12:10] LABS: PROLACTIN 14.03 ng/mL
[2021-02-02 13:14] LABS: ESTIMATED AVERAGE GLUCOSE 128 mg/dL (70-100); HEMOGLOBIN A1c% 6.1 % (4.27-6.07)
== END 2021-02-02 10:57 | disposition home or self-care (01) ==
LOC: LAB 10:56
PROVIDERS: ATTEND Obstetrics & Gynecology
DX: Z01.812 Encounter for preprocedural laboratory examination (principal); N91.5 Oligomenorrhea, unspecified; Z13.1 Encounter for screening for diabetes mellitus; Z13.220 Encounter for screening for lipoid disorders; R19.09 Other intra-abdominal and pelvic swelling, mass and lump; R10.2 Pelvic and perineal pain
CPT/HCPCS: 36415; 80061; 81599; 82951; 83036; 83498; 83721; 84146; 84403; 84439; 84443; 85027; 86304; 87491; 87591; 87661

== ENCOUNTER 2021-02-10 15:39 | Outpatient (CLI) | payer OTHER | END 2021-02-10 15:40 | disposition home or self-care (01) | LOC: COV 15:39 | PROVIDERS: ATTEND Obstetrics & Gynecology | DX: Z01.812 Encounter for preprocedural laboratory examination (principal); R19.09 Other intra-abdominal and pelvic swelling, mass and lump; N91.5 Oligomenorrhea, unspecified; R10.2 Pelvic and perineal pain; E11.9 Type 2 diabetes mellitus without complications; Z20.822 Contact with and (suspected) exposure to COVID-19 ==

== ENCOUNTER 2021-02-14 08:06 | Day surgery (SDC) | payer OTHER ==
[2021-02-14] MEDS ORDERED: LACTATED RINGERS 1,000 ML IV ONE ×2 (08:17→13:26)
[2021-02-14] MEDS ORDERED: GABAPENTIN 400 MG CAPSULE ONE ×2 (08:33→15:07)
[2021-02-14] MEDS ORDERED: CELECOXIB 100 MG CAPSULE PO ONE (08:34)
[2021-02-14] MEDS ORDERED: ACETAMINOPHEN 1,000 MG/100 ML 100 ML IV ONE (08:34)
[2021-02-14] MEDS ORDERED: ceFAZolin 2 GM/50 ML 2 GM/50 ML BAG IV ONE (08:38)
[2021-02-14 08:45] LABS: HCG UR QUAL NEGATIVE
[2021-02-14] MEDS ORDERED: SCOPOLAMINE PATCH TOP ONE (08:58)
[2021-02-14] MEDS ORDERED: SCOPOLAMINE PATCH TOP SCH (09:00)
[2021-02-14] MEDS ORDERED: BUPIVACAINE 0.5%-EPI 1:200000 PF 30 ML VIAL ONE (09:14)
[2021-02-14] MEDS ORDERED: SILVER NITRATE APPLICATOR TOP ONE (09:14)
[2021-02-14] MEDS ORDERED: METOCLOPRAMIDE 10 MG/2 ML VIAL IVP PRN (09:25)
[2021-02-14] MEDS ORDERED: HYDROmorphone 0.5 MG/0.5 ML SYRINGE IVP PRN (09:25)
[2021-02-14] MEDS ORDERED: ePHEDrine 50 MG/ML VIAL IVP PRN (09:25)
[2021-02-14] MEDS ORDERED: ONDANSETRON 4 MG/2 ML VIAL IVP PRN (09:25)
[2021-02-14] MEDS ORDERED: NALOXONE 0.4 MG/ML VIAL IVP PRN (09:25)
[2021-02-14] MEDS ORDERED: fentaNYL 100 MCG/2 ML VIAL IVP PRN (09:25)
[2021-02-14] MEDS ORDERED: ATROPINE ABBOJECT 1 MG/10 ML SYRINGE IVP PRN (09:25)
[2021-02-14] MEDS ORDERED: MORPHINE 2 MG/ML CARPUJECT IVP PRN (09:25)
--- NOTE | 2021-02-14 09:28 | ANESTHESIA ---
Pre-Anesthesia VS, & Labs - Diagnosis adnexal mass, oligomenorrhea, pelvic pain - Procedure laparoscopic salpingo-oophorectomy, myosure hysterectomy Vital Signs: Temp Pulse Resp BP Pulse Ox 37 C 75 16 133/88 H 97 02/14/21 08:26 02/14/21 08:26 02/14/21 08:26 02/14/21 08:26 02/14/21 08:26 Height: 5 ft 9 in Weight (kg): 112 kg Body Mass Index: 36.4 BMI Classification: Obese - NPO >8 hours - Is Patient ?: No - Lab Results Current Lab Results: Laboratory Tests 02/14/21 08:50: POC Whole Bld Glucose 107 H Lab results reviewed: Yes Home Medications and Allergies Home Medications: Ambulatory Orders Escitalopram Oxalate [Lexapro] 20 mg PO DAILY 02/13/21 Prazosin [Minipress] 4 mg PO QPM 02/13/21 Active Medications Scopolamine HBr (Scopolamine Patch) 1 patch TOP Q3D NELLI Last Admin: 02/14/21 09:01 Dose: 1 patch Documented by: Bupropion HCl [Wellbutrin Xl] 300 mg PO DAILY 06/05/19 Escitalopram Oxalate [Lexapro] 20 mg PO DAILY 02/13/21 Prazosin [Minipress] 4 mg PO QPM 02/13/21 Allergies/Adverse Reactions: Allergies Allergy/AdvReac Type Severity Reaction Status Date / Time No Known Drug Allergies Allergy Verified 01/19/21 22:55 Anes History & Medical History - Anesthetic History Anesthesia Complications: reports: No previous complications Family history of Anesthesia Complications: Denies Family history of Malignant Hyperthermia: Denies - Medical History Cardiovascular: reports: None Pulmonary: reports: None Gastrointestinal: reports: GERD Urinary: reports: None Neuro: reports: None Musculoskeletal: reports: Gout Endocrine/Autoimmune: reports: None Blood Disorders: reports: None Skin: reports: None Smoking Status: Never smoker - Surgical History General: reports: Appendectomy Gynecologic: reports: section Exam General: Alert, Oriented x3, Cooperative Dental: WNL Mouth Openin Fingerbreadth Neck Mobility: Normal Mallampati classification: II Thyromental Distance: 4-6 cm Respiratory: Lungs clear, Normal breath sounds, No respiratory distress Cardiovascular: Regular rate Neurological: Normal speech Mental/Cognitive Status: Alert/Oriented X3, Normal for patient Cognitive Status: Within normal limits Plan Anesthesia Type: General Consent for Procedure(s) Verified and Reviewed: Yes Code Status: Attempt Resuscitation ASA classification: 2-Mild systemic disease Is this case an emergency?: No
[2021-02-14] MEDS ORDERED: DEXAMETHASONE 4 MG/ML VIAL ONE (09:29)
[2021-02-14] MEDS ORDERED: SUGAMMADEX 200 MG/2 ML VIAL IVP ONE (09:29)
[2021-02-14] MEDS ORDERED: LIDOCAINE-MPF 2% 5 ML VIAL ONE ×2 (09:29→09:30)
[2021-02-14] MEDS ORDERED: ROCURONIUM 50 MG/5 ML VIAL ONE (09:29)
[2021-02-14] MEDS ORDERED: KETOROLAC 30 MG/ML VIAL ONE (09:29)
[2021-02-14] MEDS ORDERED: PROPOFOL 200 MG/20 ML VIAL IVP ONE ×4 (09:29→13:05)
[2021-02-14] MEDS ORDERED: MIDAZOLAM 2 MG/2 ML VIAL ONE (09:35)
[2021-02-14] MEDS ORDERED: fentaNYL 100 MCG/2 ML VIAL ONE ×4 (09:35→13:39)
[2021-02-14] MEDS ORDERED: LIDOCAINE MPF 2%-EPI 1:200000 20 ML VIAL ONE (09:50)
[2021-02-14] MEDS ORDERED: LACTATED RINGERS 1,000 ML IV SCH (10:00)
[2021-02-14] MEDS ORDERED: BUPIVACAINE 0.5% PF 30 ML VIAL ONE (10:17)
[2021-02-14] MEDS ORDERED: ePHEDrine 50 MG/ML VIAL IVP ONE (10:30)
[2021-02-14] MEDS ORDERED: LIDOCAINE 2%-EPI 1:100000 20 ML MDV SUBQ ONE (10:48)
[2021-02-14] MEDS ORDERED: HYDROmorphone 1 MG/ML CARPUJECT ONE ×2 (11:31→13:39)
[2021-02-14] MEDS ORDERED: BUPIVACAINE 0.5%-EPI 1:200000 PF 30 ML VIAL SUBQ ONE (11:55)
[2021-02-14] MEDS ORDERED: BUPIVACAINE 0.5% PF 30 ML VIAL SUBQ ONE (12:50)
[2021-02-14] MEDS ORDERED: FERRIC SUBSULFATE 8 ML SOLUTION (FOR OR) TOP ONE (13:02)
[2021-02-14] MEDS ORDERED: diphenhydrAMINE INJ 50 MG/ML VIAL ONE (13:08)
[2021-02-14] MEDS ORDERED: oxyCODONE 5 MG TABLET PO PRN (13:34)
--- NOTE | 2021-02-14 13:43 | OPERATIVE REPORT ---
Operative Report - General Planned Procedure: Hysteroscopy D&C Laparoscopic cystectomy, possible oophorectomy, possible salpingectomy, possible conversion to open Pre-Op Diagnosis: Pelvic pain, 8 cm adnexal mass, thickened EMS, DUB Procedure Performed: Hysteroscopy D&C, left sided laparoscopic cystectomy and salpingoophorectomy, and cystoscopy Post Op Diagnosis: Same and endometriosis - Procedure Note Primary Surgeon: Ángela Lopez MD Secondary Surgeon: Joel Ghosh MD Anesthesia Provider: Lauren Calix CRNA Anesthesia Technique: General ET tube Pathology: 1) Uterine contents 2) Left ovary, fallopian tube, and ovarian cyst Estimated Blood Loss (mL): 250 Urine Output (mL): 50 (In and out catheterization at start of the procedure) Indications: Patient is a 35 yo who presents for ovarian cystectomy vs salpingectomy vs oophorectomy. Patient initially presented to the ED on 01/20/21 with acute onset pelvic pain. Patient reports that she was talking to her on the phone about 9 pm when she started having left sided pelvic pain that spread across her lower abdomen. Her abdomen felt rigid at the time. Pain was rated 10/10. She has never had pain like this in the past. No vomiting. No fever. Low risk profile for PID. No vaginal discharge or bleeding. She has had 2 prior CS and a BTL. Last IC was in November as was her last menstrual cycle. Negative UCG on presentation. Irregualr menses with no clear pattern to cycles. Had presumed she was premenopausal as her mother had early onset menopause/premature ovarian failure prior to age 40. Elevated WBC at 17.4. Review of prior records shows WBC 14.6 in June when presenting for [facility]. CT scan showed hepatic steatosis and cholelithiasis, diverticulosis, fibroid uterus, and left adnexal mass 4.6x4.1 cm. Pelvic us showed left ovary with multiple small cysts and an elongated cystic structure, complex with internal echoes suggestive of pyosalpinx or hemosalpinx. (Of note, there were no inflammatory changes noted on CT scan). At the time of initial presentation, pain had been relieved such that she declined emergent surgical intervention. Pain has been waxing and waning but has been present since time of initial presentation. Findings: The left adnexa was fully incoporated into the ovarian/adnexal cyst, which appeared as two bodies, a smooth gomez cyst of about 5 cm and an more nodular appearing cyst of about 5-6 cm. Slight manipulation of the cyst in an attempt to view the ureter resulted in immediate spillage of chocolate appearing fluid, consistent with an endometrioma. Otherwise normal survey of abdomen. Uterine cavity had a thick, polypoid lining with bilateral tubal ostia noted. Complications: None - Other Other Information/Narrative: Risks benefits and alternatives to the procedure were reviewed. Consent was again confirmed. Patient was taken to the operating room where she underwent general anesthesia. She was positioned in dorsolithotomy position with legs resting in yellowfin stirrups. She was prepped and draped in the usual sterile fashion. She was given caefazolin 2g IV for prophylaxis. Preoperative checklist was performed. Exam under anesthesia was performed. Speculum was placed in the vagina and the cervix was visualized. Single-tooth tenaculum was placed at the anterior cervical lip. Paracervical block was administered using a total of 20 cc of 1% lidocaine with epinephrine mixed with 0.5% bupivicaine was injected at the 4:00 and 8:00 positions lateral to the portio of the cervix. The cervical os was serially dilated with Hegar dilators to accommodate the caliber of the diagnostic hysteroscope. The cervical tissue was very boggy and was unable to hold the single toothed tenaculum or the double toothed tenaculum. A Luis's teanculum was eventually used, taking care not to use significant counter pressure the the uterine dilation to avoid trauma to cervix. Uterus sounded to 10 cm. The hysteroscope was inserted and findings were noted as above. The hysteroscopic morcellator was inserted through the operative port. The thick uterine lining was morcellated under direct visualization. Uterine cavity was smooth at close of the procedure. Hysteroscope was removed. Humi uterine manipulator was then inserted. Attention was then turned to the laparascopic portion of the procedure. The base of the umbilicus was anesthetized with intradermal injection of 1% lidocaine with epinephrine mixed with 0.5% bupivicaine. A 5 mm skin incision was made with a scalpel. A 5 mm blunt trocar was inserted under direct visualization using YOUniteiport. Once the port was confirmed to be placed intraperitoneally, the abdomen was insufflated to 15 mmHg with CO2 gas Exploration of the abdomen and pelvis was confirmed that no injury was sustained with placement of the trocar. An additional 5 mm ports were placed in the right lower quadrants, taking care to avoid the epigastric arteries, while under direct visualization via laparoscopic guidance. A 10 mm port was placed in the left lower quadrant, using the same procedure. The abdomen was explored with the laparoscope, with findings as noted. The left adenxa was fully incoporated into the ovarian/adnexal cyst, which appeared as two bodies, a smooth gmoez cyst of about 5 cm and an more nodular appearing cyst of about 5-6 cm. Slight manipulation of the cyst in an attempt to view the ureter, resulted in immediate spillage of chocolate appearing fluid, consistent with an endometrioma. The fimbriated end of the tube appeared to be fixed to the cyst so that only the fimbirated ends would be identified and the insertion into the uterine cornua. Washings were collected. The underlying mesosalpinx was sealed and resected to the insertion point on the uterine cornua using the Ligasure device. The tube was then sealed and transected at the insertion point at the cornua. A tubal segment was removed from the pelvis through the lateral port. Careful dissection, keeping close the the cyst body was performed with blunt dissection and with the laparoscopic Ligasure. The anterior endometrioma was drained with the suction parts sales counterperson to restrict any further spillage. The abdomen was partially desufflated. Pedicles were observed under decreased pressure and good hemostasis was again confirmed. Abdomen was then completely desufflated. All instruments were removed from the abdomen. Skin was closed with interrupted subcuticular stitches using 4-0 Monocryl. Dermabond was applied over the suture sites. The Humi manipulator was removed from the uterus. Again, good hemostasis was noted. The final sponge needle and instrument counts were correct at completion of the procedure patient was awakened taken to the postanesthesia care unit in stable condition. Dr. Ghosh assisted with suturing and retraction. This case was more complicated that the average cystectomy/oophorectomy due to t he dense adhesions and size of mass. Procedure was well-tolerated without complication. Fluid deficit: 250 cc NS
[2021-02-14] MEDS ORDERED: oxyCODONE 5 MG TABLET ONE ×2 (14:22→14:40)
[2021-02-14] MEDS ORDERED: GABAPENTIN 400 MG CAPSULE PO SCH (15:00)
--- NOTE | 2021-02-14 15:15 | ANESTHESIA POST OP EVALUATION ---
Anesthesia Post Eval - Post Anesthesia Eval Vitals: Last Vital Signs Temp 36.5 C 02/14/21 14:45 Pulse 99 02/14/21 14:45 Resp 15 02/14/21 14:45 BP 132/68 H 02/14/21 14:45 Pulse Ox 98 02/14/21 14:45 CV Function Including HR & BP: Stable Pain Control: Satisfactory Nausea & Vomiting: Negative Mental Status: Baseline Respiratory Status: Airway Patent Hydration Status: Satisfactory Anesthesia Complications: None
[2021-02-14 15:47] VITALS: BP 131/77
== END 2021-02-14 08:07 | disposition home or self-care (01) ==
LOC: SDS 08:06
PROVIDERS: ATTEND Obstetrics & Gynecology
PROC: 0UT64ZZ Resection of Left Fallopian Tube, Percutaneous Endoscopic Approach (ICD-10-PCS; 2021-02-14)
PROC: 0UDB8ZX Extraction of Endometrium, Via Natural or Artificial Opening Endoscopic, Diagnostic (ICD-10-PCS; principal; 2021-02-14 09:45)
PROC: 0UT14ZZ Resection of Left Ovary, Percutaneous Endoscopic Approach (ICD-10-PCS; 2021-02-14 09:45)
DX: R10.2 Pelvic and perineal pain (principal); R19.09 Other intra-abdominal and pelvic swelling, mass and lump; N80.1 Endometriosis of ovary; N91.3 Primary oligomenorrhea; E66.9 Obesity, unspecified; Z68.36 Body mass index [BMI] 36.0-36.9, adult
CPT/HCPCS: 58558; 58661; 81025; A9270; J0131; J0690; J1170; J1200; J3490; J7120

== ENCOUNTER 2021-04-17 14:55 | Outpatient (CLI) | payer OTHER ==
--- NOTE | 2021-04-18 10:38 | Ultrasound Report ---
PROCEDURE: Pelvic w/Transvaginal INDICATIONS: PELVIC PAIN TECHNIQUE: Real-time scanning was performed of the pelvic organs, with image documentation. Additional endovagi nal scanning was necessary due to incomplete visualization of the adnexal and endometrial structures by transabdominal scanning. COMPARISON: None. FINDINGS: No pathologic free abdominal or pelvic fluid. Uterus: Uterus is normal in size at 8.8 by 3.7 x 5.0 cm. The endometrium measures 9.6 mm in combine d thickness. Nabothian cysts are noted. Ovaries: Right ovary measures 2.6 x 2.8 x 2.0 cm, volume 7.4 cc. Right ovary is unremarkable. Left o vary is not visualized and by history has been removed. Adnexal region is unremarkable. IMPRESSION: 1. Surgical removal of left ovary. Left adnexa is within normal limits. 2. Remaining portions of the exam are unremarkable. Reviewed by: Dolores Becerril MD on 04/18/2021 10:37 AM PDT Approved by: Dolores Becerril MD on 04/18/2021 10:37 AM PDT Station ID: [id number]
== END 2021-04-17 14:56 | disposition home or self-care (01) ==
LOC: DI 14:55
PROVIDERS: ATTEND Obstetrics & Gynecology
DX: R10.2 Pelvic and perineal pain (principal); Z90.721 Acquired absence of ovaries, unilateral

== ENCOUNTER 2021-12-20 11:58 | Emergency (ER) | payer OTHER ==
--- NOTE | 2021-12-20 12:08 | ED Physician Documentation ---
PD HPI DYSPNEA - Stated complaint Stated Complaint: SOA, CHEST PX - Chief complaint Chief Complaint: Cardiac - History obtained from History obtained from: Patient - History of Present Illness Timing - onset: How many weeks ago (has had some feeling of chest tightness and dyspnea for couple of weeks. Has some pain the past couple of days. Mild cough. Home rapid COVID test yesterday was negative. No history of asthma. Feeling dyapnea with activity.) Timing - onset during: Light activity Timing - details: Gradual onset, Waxing and waning Inciting event(s): No: URI (not feeling URI per se but has had some dry cough and dyspnea/wheezing feeling.) Improved by: Rest Worsened by: Exertion Associated symptoms: Cough, Wheezing. No: Fever, Hemoptysis, Chest pain / discomfort, Bilateral edema Similar symptoms before: Has not had sx before Recently seen: Not recently seen Review of Systems Constitutional: reports: Fatigue. denies: Fever, Chills, Myalgias Nose: denies: Rhinorrhea / runny nose, Congestion Throat: denies: Sore throat Cardiac: reports: Chest pain / pressure, Palpitations. denies: Pedal edema, Calf pain Respiratory: reports: Dyspnea, Wheezing. denies: Cough, Hemoptysis GI: denies: Vomiting, Diarrhea, Bloody / black stool Neurologic: reports: Generalized weakness. denies: Focal weakness, Numbness, Near syncope PD PAST MEDICAL HISTORY - Past Medical History Cardiovascular: None Respiratory: None Neuro: None Endocrine/Autoimmune: None GI: GERD HISTOLOGY AIDE: None : None HEENT: None Psych: Depression, Anxiety, ADD/ADHD Musculoskeletal: Gout Derm: None - Past Surgical History Past Surgical History: Yes General: Appendectomy /HISTOLOGY AIDE: section - Present Medications Home Medications: Ambulatory Orders Medication Instructions Recorded Confirmed Bupropion HCl [Wellbutrin Xl] 300 mg PO DAILY 06/05/19 02/13/21 Escitalopram Oxalate [Lexapro] 20 mg PO DAILY 02/13/21 02/13/21 Prazosin [Minipress] 4 mg PO QPM 02/13/21 02/13/21 Acetaminophen [Acetaminophen Extra 1,000 mg PO Q8H PRN #60 tablet 02/14/21 Strength] Docusate Sodium 100Mg Capsule 100 - 200 mg PO BID PRN #60 cap 02/14/21 [Colace 100Mg Capsule] Gabapentin [Neurontin] 300 mg PO TID PRN #45 cap 02/14/21 Ibuprofen [Motrin] 600 mg PO Q6H PRN #60 tab 02/14/21 oxyCODONE [Roxicodone] 2.5 - 5 mg PO Q4H PRN #24 tablet 02/14/21 oxyCODONE [Roxicodone] 2.5 - 5 mg PO Q4H PRN #16 tablet 02/20/21 Albuterol Sulf [Ventolin Hfa 2 - 3 puffs INH Q4HR PRN #1 inhaler 12/20/21 Inhaler] HYDROcod/ACETAM 5/325 [[place] 5/325] 1 ea PO Q6H PRN #12 tablet 12/20/21 Losartan [Cozaar] 50 mg PO DAILY 30 Days #30 tablet 12/20/21 dexAMETHasone [Decadron] 4 mg PO DAILY #5 tablet 12/20/21 - Allergies Allergies/Adverse Reactions: Allergies Allergy/AdvReac Type Severity Reaction Status Date / Time No Known Drug Allergies Allergy Verified 01/19/21 22:55 - Living Situation Living Arrangement: reports: At home - Social History Does the pt smoke?: No Smoking Status: Never smoker Does the pt drink ETOH?: No Does the pt have substance abuse?: No - Immunizations Immunizations are current?: Yes - POLST Patient has POLST: No PD ED PE NORMAL - Vitals Vital signs reviewed: Yes - General General: Alert and oriented X 3, No acute distress, Well developed/nourished - HEENT HEENT: Pharynx benign - Neck Neck: Supple, no meningeal sign, No adenopathy - Cardiac Cardiac: RRR, No murmur - Respiratory Respiratory: No: Clear bilaterally (faint exp wheezing noted central chest. ) - Abdomen Abdomen: Soft, Non tender - Derm Derm: Normal color, Warm and dry - Extremities Extremities: Normal ROM s pain, No edema, No calf tenderness / cord - Neuro Neuro: Alert and oriented X 3, No motor deficit, Normal speech Results - Vitals Vitals: Vital Signs - 24 hr 12/20/21 12/20/21 12/20/21 12:04 12:38 12:45 Temperature 36.7 C Heart Rate 89 73 63 Respiratory 18 20 12 Rate Blood Pressure 165/106 H 168/88 H O2 Saturation 99 100 12/20/21 13:50 Temperature Heart Rate 80 Respiratory Rate Blood Pressure 166/71 H O2 Saturation 99 Oxygen O2 Source Room air - EKG (time done) 12:05 Rate: Rate (enter#) (73) Rhythm: NSR [place]: Normal Intervals: Normal NC QRS: Normal Ischemia: Normal ST segments. No: ST elevation c/w ischemia, ST depression - Labs Labs: Laboratory Tests 12/20/21 12/20/21 12/20/21 12:40 12:40 12:40 WBC 12.1 H RBC 4.82 Hgb 11.7 L Hct 37.5 MCV 77.8 L MCH 24.3 L MCHC 31.2 L RDW 14.9 Plt Count 425 MPV 9.4 Neut # (Auto) 8.4 H Lymph # (Auto) 2.6 [place] # (Auto) 0.7 Eos # (Auto) 0.2 Baso # (Auto) 0.1 Absolute Nucleated RBC 0.00 Nucleated RBC % 0.0 Sodium 135 Potassium 3.7 Chloride 101 Carbon Dioxide 24 Anion Gap 10.0 BUN 13 Creatinine 0.7 Estimated GFR (MDRD) 94 Glucose 107 H Calcium 9.3 Magnesium 1.8 Total Bilirubin 0.3 AST 37 ALT 60 Alkaline Phosphatase 80 Troponin I High Sens 3.3 B-Natriuretic Peptide Total Protein 7.4 Albumin 3.6 Globulin 3.8 Albumin/Globulin Ratio 0.9 L Lipase 33 TSH 12/20/21 12/20/21 12:40 12:40 WBC RBC Hgb Hct MCV MCH MCHC RDW Plt Count MPV Neut # (Auto) Lymph # (Auto) [place] # (Auto) Eos # (Auto) Baso # (Auto) Absolute Nucleated RBC Nucleated RBC % Sodium Potassium Chloride Carbon Dioxide Anion Gap BUN Creatinine Estimated GFR (MDRD) Glucose Calcium Magnesium Total Bilirubin AST ALT Alkaline Phosphatase Troponin I High Sens B-Natriuretic Peptide 14 Total Protein Albumin Globulin Albumin/Globulin Ratio Lipase TSH 1.27 - Rads (name of study) chest Radiology: Prelim report reviewed (no acute process), See rad report PD MEDICAL DECISION MAKING - ED course Complexity details: re-evaluated patient (BP stlill moderate elevated and she says she has been borderline high often in past and told she should consider starting BP med in past. I don't feel is related to current symptoms but could start med. Otherwise, consider RAD as improved with MDI and has symptoms c/w bronchial tightness. ), considered differential, d/w patient Departure - Departure Disposition: 01 Home, Self Care Clinical Impression: Elevated blood pressure reading Chest pain Qualifiers: Chest pain type: precordial pain Qualified Code(s): R07.2 - Precordial pain Dyspnea Qualifiers: Dyspnea type: shortness of breath Qualified Code(s): R06.02 - Shortness of breath Condition: Stable Record reviewed to determine appropriate education?: Yes Instructions: ED Dyspnea Shortness of Breath Follow-Up: TATIANNA CARDENAS DO [Primary Care Provider] - Prescriptions: Albuterol Sulf [Ventolin Hfa Inhaler] 2 - 3 puffs INH Q4HR PRN #1 inhaler PRN Reason: Shortness Of Air/Wheezing Losartan [Cozaar] 50 mg PO DAILY 30 Days #30 tablet dexAMETHasone [Decadron] 4 mg PO DAILY #5 tablet HYDROcod/ACETAM 5/325 [[place] 5/325] 1 ea PO Q6H PRN #12 tablet PRN Reason: Pain Comments: Your EKG, chest x-ray, blood tests are good. Your blood pressure is moderately elevated here. Your heart rhythm and heart rate are good as is your oxygenation. Presume you are trouble breathing and pain are related to some bronchial inflammation or chest wall inflammation. I would suggest using the albuterol inhaler 2 to 3 puffs 4 times daily for the next several days to week and then as needed. Also Decadron steroid anti-inflammatory daily for 5 more days to help with bronchial and chest wall inflammation. To this you can add Tylenol every 4-6 hours if needed for pain. You could use hydrocodone if needed for worse pain in the short-term over the next couple of days. Off work for 1 to 2 days due to his acute symptoms. Your blood pressure was elevated here and it sounds like it has been on the high side over the longer term. If you do decide to start a low-dose blood pressure medicine, I wrote for a beginning blood pressure medicine called losartan to take daily. Otherwise follow-up with your primary care. Recheck if not improved well over the next several days. I transmitted your prescription to [facility] pharmacy. I am prescribing a short course of narcotic pain medication for you. These are potentially dangerous and addictive medications that should be used carefully. These medications may constipate you. Take an [id number] stool softener such as docusate twice daily with plenty of water while taking these medications. If you go 24 hours without a bowel movement, take [id number] MiraLAX, per package instructions. Do not drink or drive while taking these medications. If you received narcotic or sedating medications while in the emergency department do not drive for 24 hours. Store this medication in a safe, secure place and out of reach of children. It is a violation of federal law to give or sell this medication to another person or to use in a manner other than prescribed. The ED will not refill narcotic prescriptions, including prescriptions lost or stolen. You can dispose of unwanted medications at the [facility]'s office or at several pharmacies such as [facility]. Discharge Date/Time: 12/20/21 13:50
[2021-12-20] MEDS ORDERED: ALBUTEROL 1 PUFF INH STA (12:33)
[2021-12-20] MEDS ORDERED: MAG HYDROX/AL HYDROX/SIMETH 30 ML UDC PO STA (12:33)
[2021-12-20 12:45] LABS: BASOPHILS # (AUTO) 0.1 10^3/uL (0.0-0.1); BASOPHILS % (AUTO) 0.5 %; EOSINOPHILS # (AUTO) 0.2 10^3/uL (0.0-0.7); EOSINOPHILS % (AUTO) 1.6 %; HCT - HEMATOCRIT 37.5 % (37.0-47.0); HGB - HEMOGLOBIN 11.7 g/dL (12.0-16.0); LYMPHOCYTES # (AUTO) 2.6 10^3/uL (1.5-3.5); LYMPHOCYTES % (AUTO) 21.5 %; MEAN CORPUSCULAR HEMOGLOBIN 24.3 pg (27.0-31.0); MEAN CORPUSCULAR HGB CONC 31.2 g/dL (32.0-36.0); MEAN CORPUSCULAR VOLUME 77.8 fL (81.0-99.0); MEAN PLATELET VOLUME 9.4 fL (7.9-10.8); MONOCYTES # (AUTO) 0.7 10^3/uL (0.0-1.0); MONOCYTES % (AUTO) 6.1 %; NEUTROPHILS # (AUTO) 8.4 10^3/uL (1.5-6.6); NEUTROPHILS % (AUTO) 69.9 %; PLT - PLATELET COUNT 425 10^3/uL (130-450); RED BLOOD COUNT 4.82 10^6/uL (4.20-5.40); RED CELL DISTRIBUTION WIDTH 14.9 % (12.0-15.0); WHITE BLOOD COUNT 12.1 x10^3/uL (4.8-10.8)
--- NOTE | 2021-12-20 13:10 | XRAY Report ---
PROCEDURE: Chest 1 View X-Ray INDICATIONS: SOA TECHNIQUE: One view of the chest was acquired. COMPARISON: July 06, 2019 FINDINGS: SUPPORT DEVICES: None. LUNGS/PLEURA: No focal consolidation, pleural effusion or space-occupying pneumothorax. MEDIASTINUM: The cardiomediastinal silhouette is within normal limits. BONES/SOFT TISSUES: No acute abnormality. IMPRESSION: 1.No acute cardiopulmonary abnormality. Reviewed by: Erasmo Nunez MD on 12/20/2021 1:08 PM PDT Approved by: Erasmo Nunez MD on 12/20/2021 1:08 PM PDT Station ID: [id number]
[2021-12-20 13:11] LABS: ALBUMIN 3.6 g/dL (3.2-5.5); ALBUMIN/GLOBULIN RATIO 0.9 (1.0-2.2); BILIRUBIN,TOTAL 0.3 mg/dL (0.2-1.0); CALCIUM 9.3 mg/dL (8.5-10.3); CREATININE 0.7 mg/dL (0.4-1.0); MAGNESIUM 1.8 mg/dL (1.7-2.8); POTASSIUM 3.7 mmol/L (3.5-5.0); TOTAL PROTEIN 7.4 g/dL (6.7-8.2)
[2021-12-20] MEDS ORDERED: DEXAMETHASONE 10 MG/ML VIAL PO STA (13:34)
[2021-12-20] MEDS ORDERED: IBUPROFEN 400 MG TABLET PO STA (13:34)
[2021-12-20] MEDS ORDERED: CHERRY SYRUP 10 ML UDC PO ONE (13:34)
[2021-12-20] MEDS ORDERED: ACETAMINOPHEN 325 MG TABLET PO STA (13:34)
[2021-12-20 13:51] VITALS: BP 166/71
== END 2021-12-20 13:50 | disposition home or self-care (01) ==
LOC: ED 11:58
DX: R07.2 Precordial pain (principal); R06.02 Shortness of breath; R03.0 Elevated blood-pressure reading, without diagnosis of hypertension
CPT/HCPCS: 36415; 71045; 80053; 83690; 83735; 83880; 84443; 84484; 85025; 93005; 94640; 94664; 99284; A9270